=== PATIENT | male | born 1980 | race African-American/Black ===

== ENCOUNTER 2017-11-14 16:25 | Emergency (ER) | payer OTHER ==
[~2017-11-14] VITALS: Ht 185.4 cm; Wt 72.7 kg
[2017-11-14 20:21] VITALS: BP 120/64
== END 2017-11-14 20:41 | disposition home or self-care (01) ==
LOC: EMS 16:26
DX: T51.91XA Toxic effect of unspecified alcohol, accidental (unintentional), initial encounter (principal); Y92.89 Other specified places as the place of occurrence of the external cause
CPT/HCPCS: 99283